=== PATIENT | female | born 2000 | race African-American/Black ===

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

== ENCOUNTER 2023-01-11 04:00 | Emergency (ER) | payer OTHER ==
[2023-01-11 04:04] VITALS: BP 146/88; PULSE 98; RESP 18; TEMP 97.4; BMI 29.9
[2023-01-11] MEDS ORDERED: KETOROLAC TROMETHAMINE 30 MG/1 ML VIAL IM ONE (04:27)
[2023-01-11] MEDS ORDERED: KETOROLAC TROMETHAMINE 30 MG/1 ML VIAL ONE (04:40)
== END 2023-01-11 05:59 | disposition home or self-care (01) ==
LOC: JER 04:00
PROC: 0H9CXZZ Drainage of Left Upper Arm Skin, External Approach (ICD-10-PCS; principal; 2023-01-11)
PROC: 3E0233Z Introduction of Anti-inflammatory into Muscle, Percutaneous Approach (ICD-10-PCS; 2023-01-11)
DX: L02.412 Cutaneous abscess of left axilla (principal)
CPT/HCPCS: 99284-25

== ENCOUNTER 2023-01-12 10:06 | Emergency (ER) | payer OTHER ==
[2023-01-12 10:13] VITALS: BP 128/71; PULSE 79; RESP 18; TEMP 98.4; BMI 29.9
[2023-01-12] MEDS ORDERED: IBUPROFEN 400 MG TABLET (FP) PO ONE ×2 (11:08→11:12)
== END 2023-01-12 11:30 | disposition home or self-care (01) ==
LOC: JERFT 10:06
DX: Z48.00 Encounter for change or removal of nonsurgical wound dressing (principal); L02.412 Cutaneous abscess of left axilla
CPT/HCPCS: 99283-25

== ENCOUNTER 2023-07-06 20:32 | Emergency (ER) | payer OTHER ==
[2023-07-06 20:44] VITALS: BP 137/68; PULSE 97; RESP 18; TEMP 100.1; BMI 33.3
[2023-07-06] MEDS ORDERED: AMOXICILLIN 250 MG CAPSULE ONE (22:51)
[2023-07-06] MEDS ORDERED: ACETAMINOPHEN 325 MG TABLET (FP) ONE (22:51)
[2023-07-06] MEDS: ACETAMINOPHEN 325 MG TABLET (FP) PO ONE (22:54)
[2023-07-06] MEDS: AMOXICILLIN 500 MG CAPSULE (FP) PO ONE (22:55)
== END 2023-07-06 23:06 | disposition home or self-care (01) ==
LOC: JERFT 20:32
DX: J02.0 Streptococcal pharyngitis (principal); R50.9 Fever, unspecified; R05.9 Cough, unspecified; M79.10 Myalgia, unspecified site; R09.81 Nasal congestion; Z20.822 Contact with and (suspected) exposure to COVID-19
CPT/HCPCS: 0241U-QW; 87651; 99283-25

== ENCOUNTER 2023-09-06 11:14 | Emergency (ER) | payer OTHER ==
[2023-09-06 11:25] VITALS: BP 152/77; PULSE 86; RESP 18; TEMP 98.9; BMI 29.9
[2023-09-06 12:24] LABS: THROAT:GRP A STREP NOT DETECTED (NOTDETECTED)
== END 2023-09-06 12:39 | disposition home or self-care (01) ==
LOC: JERFT 11:14
DX: R09.81 Nasal congestion (principal); J02.9 Acute pharyngitis, unspecified; R05.9 Cough, unspecified; M79.10 Myalgia, unspecified site; R50.9 Fever, unspecified; R51.9 Headache, unspecified; J39.8 Other specified diseases of upper respiratory tract; B97.89 Other viral agents as the cause of diseases classified elsewhere; Z20.822 Contact with and (suspected) exposure to COVID-19
CPT/HCPCS: 0241U-QW; 87651; 99283-25

== ENCOUNTER 2024-09-27 14:23 | Emergency (ER) | payer OTHER ==
[2024-09-27 14:31] VITALS: BP 133/76; PULSE 87; RESP 18; TEMP 98.4; BMI 31.8
[2024-09-27] MEDS ORDERED: LIDOCAINE HCL 2% (20ML MULTI-DOSE VIAL) ONE (14:53)
[2024-09-27] MEDS ORDERED: CLINDAMYCIN HCL 150 MG CAPSULE (FP) ONE (15:18)
[2024-09-27] MEDS: CLINDAMYCIN HCL 300 MG CAPSULE PO ONE (15:20)
== END 2024-09-27 15:40 | disposition home or self-care (01) ==
LOC: JERFT 14:23
PROC: 0X953ZZ Drainage of Left Axilla, Percutaneous Approach (ICD-10-PCS; principal; 2024-09-27)
DX: L02.412 Cutaneous abscess of left axilla (principal)
CPT/HCPCS: 99283-25

== ENCOUNTER 2024-11-13 14:07 | Emergency (ER) | payer OTHER ==
[2024-11-13 14:21] VITALS: BMI 30.9
[2024-11-13] MEDS ORDERED: ACETAMINOPHEN 325 MG TABLET (FP) ONE (15:44)
[2024-11-13] MEDS: ACETAMINOPHEN 500 MG TABLET (FP) PO ONE (15:46)
[2024-11-13] MEDS: LACTATED RINGERS SOLUTION 1000 ML INFUS.BAG IV ONE (16:05)
[2024-11-13 16:10] LABS: ABSOLUTE IMMATURE GRANULOCYTES 0.02 x10^3/uL (0.0-0.031); BASOPHILS # 0.01 x10^3/uL (0.01-0.08); EOSINOPHIL % 0.3 % (0.7-5.8); EOSINOPHILS # 0.02 x10^3/uL (0.04-0.36); MCHC 31.8 g/dl (32.2-35.5); MEAN CELL VOLUME 93.0 fl (79.4-94.8); MEAN PLT VOLUME 10.8 fl (9.4-12.3); MONOCYTE # 0.70 x10^3/uL (0.24-0.86); MONOCYTE % 10.2 % (4.7-12.5); RDW 12.1 % (12.1-16.5)
[2024-11-13 16:28] LABS: GLUCOSE,RANDOM 89.0 mg/dL (74-106)
[2024-11-13 16:29] LABS: TOT PROT 8.5 g/dl (6.4-8.2)
[2024-11-13 16:30] LABS: CO2 25.0 mmol/L (21-32)
[2024-11-13 16:31] LABS: ALK PHOS 63.0 U/L (40-150)
[2024-11-13 16:34] LABS: CREATININE 0.72 mg/dL (0.55-1.3); SGOT/AST 26.0 U/L (5-34); SGPT/ALT 30.0 U/L (0-55)
[2024-11-13 17:00] LABS: HIV INTERPRETATION NEGATIVE (NEGATIVE)
[2024-11-13 17:02] LABS: HCV DIAGNOSTIC IN-HOUSE W/RFLX NON-REACTIVE (NONREACTIVE)
[2024-11-13 17:23] LABS: HCG,QUALITATIVE URINE Negative
[2024-11-13 17:34] LABS: EPI CELLS >36 /uL (0-25.1); HYALINE CASTS 1 /uL (0-3.1); URINE APPEARANCE CLEAR; URINE BACTERIA 123 /uL (0-1359); URINE BILIRUBIN NEGATIVE (NEGATIVE); URINE COLOR DK YELLOW; URINE GLUCOSE (UA) NEGATIVE (NEGATIVE); URINE KETONE 2+ (NEGATIVE); URINE LEUK ESTERASE TRACE (NEGATIVE); URINE NITRITE NEGATIVE (NEGATIVE); URINE PROTEIN 1+ (NEGATIVE); URINE RBC 1000 /uL (0-23.9); URINE UROBILINOGEN 2.0 mg/dL (0.2-1.0); URINE WBC 19 /uL (0-25.8)
[2024-11-13 18:05] VITALS: BP 133/79; PULSE 91; RESP 16
[2024-11-13 18:21] VITALS: TEMP 99.1
== END 2024-11-13 18:35 | disposition home or self-care (01) ==
LOC: JER 14:07
DX: U07.1 COVID-19 (principal); R50.9 Fever, unspecified; R11.2 Nausea with vomiting, unspecified; R09.81 Nasal congestion; J02.9 Acute pharyngitis, unspecified; R51.9 Headache, unspecified; R05.9 Cough, unspecified; M54.9 Dorsalgia, unspecified; R10.30 Lower abdominal pain, unspecified; R53.81 Other malaise
CPT/HCPCS: 36415; 80053; 81003; 83690; 84703; 85025; 86780; 86803; 87086; 87389; 87491; 87591; 87637-QW; 87661; 99283-25